=== PATIENT | male | born 1975 | race Caucasian/White ===

== ENCOUNTER → 2021-12-04 16:29 | Outpatient (BNVA) | payer OTHER, SELFPAY | PROVIDERS: Family Provider Family Medicine; PCP Family Medicine; Visit Provider Family Medicine | DX: J06.9 Acute upper respiratory infection, unspecified (principal) | CPT/HCPCS: 87635 ==

== ENCOUNTER 2022-04-30 09:55 | Outpatient (CLI) | payer OTHER, SELFPAY | END 2022-04-30 09:56 | disposition home or self-care (01) | PROVIDERS: Family Provider Family Medicine; PCP Family Medicine; Visit Provider Family Medicine | DX: R06.09 Other forms of dyspnea (principal); R07.9 Chest pain, unspecified | CPT/HCPCS: 71046; 80053; 80061; 85025 ==

== ENCOUNTER 2022-07-31 14:49 | Emergency (ER) | payer OTHER, SELFPAY ==
[2022-07-31] VITALS (7 sets, daily range): BP systolic 134–183; BP diastolic 74–95; PULSE 70–81; RESP 16–22; TEMP 36.6; O2SAT 96–100; BMI 51.7
--- NOTE | 2022-07-31 14:54 | XR_ITS ---
WS: [id number] Exam: XR chest 1V portable [id number] Date/Time of Exam: 07/31/2022 2:54 PM Reason For Exam: chest pain Comparison 04/30/2022. Findings: The lungs are clear and fully expanded. Costophrenic angles are sharp. No infiltrates. Bronchovascula r relief appears normal. Cardiac silhouette is unremarkable. Bony elements are intact. XR/XR chest 1V portable [id number] IMPRESSION: Unremarkable chest radiograph.
--- NOTE | 2022-07-31 15:04 | ECG_ITS ---
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 Measurements Intervals [place] Rate: 78 P: 151 AK: 188 QRS: 139 QRSD: 94 T: 147 QT: 367 QTc: 419 Interpretive Statements SINUS RHYTHM ARM LEADS REVERSED [INVERTED P AND QRS IN I] No previous ECG available for comparison Electronically Signed On 07-31-2022 16:38:45 CDT by Renee James M.D. [id number]
[2022-07-31 15:07] LABS: Basophils # 0.1 10^3/uL (0.0-0.1); Basophils % 0.7 %; Eosinophils # 0.1 10^3/uL (0.0-0.8); Eosinophils % 1.6 %; Hematocrit 45.8 % (42.0-52.0); Hemoglobin 14.7 g/dL (11.7-16.6); Lymphocytes # 1.5 10^3/uL (0.8-4.8); Lymphocytes % 18.1 %; Mean Corpuscular HGB Conc 32.1 g/dL (30.0-36.0); Mean Corpuscular Hemoglobin 29.9 pg (28.0-34.0); Mean Corpuscular Volume 93.1 fl (80-94); Mean Platelet Volume 10.8 fL (7.4-10.4); Monocytes # 0.5 10^3/uL (0.2-0.9); Monocytes % 6.4 %; Neutrophils # 6.19 10^3/uL (1.8-7.7); Nucleated Red Blood Cells % 0 %; Platelet Count 243 10^3/cmm (130-400); Red Blood Count 4.92 10^6/uL (4.1-5.3); Red Cell Distribution Width 12.4 % (12.1-15.1); White Blood Count 8.5 10^3/uL (4.0-10.0)
--- NOTE | 2022-07-31 15:07 | W.ED.GENADLT ---
HPI - General Adult General: Chief complaint: Chest Pain Stated complaint: Chest pains, hbp Time Seen by Provider: 07/31/22 14:55 History of Present Illness: Patient is a 46-year-old male with history of hypertension on losartan 100 mg presenting to the emergency room for evaluation of uncontrolled blood pressure and chest pressure. Patient tells me that for the last year he has been had on and off chest pressure. He currently has chest pressure has been going on for last 3 weeks. Patient says that each episode of chest pressure lasted for 2 to 3 hours at a time. 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 Patient says that chest pressure is not worse with exertion. Since COVID last year, patient has had cough and shortness of breath. Patient was told to come to the emergency room because he had elevated blood pressure despite taking his losartan. No other focal complaints at this time. Patient denies any history of smoking. Patient reports that his father had a heart attack in his late 50s. Onset: 1 day ago of uncontrolled blood pressure, 1 year of chest pressure Duration:ongoing Location:home Severity:mild/moderate Associated symptoms: Reports chest pain (+chest pressure); Deny dyspnea, nausea, rash, palpitations or vomiting Review of Systems Const: Denies: fever(s) or chills Eyes: Denies: change in vision ENMT: Denies: mouth pain Card: Reports: chest pain (+chest pressure); Denies: palpitations Resp: Denies: dyspnea or non-productive cough GI: Denies: abdominal pain, nausea, vomiting or diarrhea : Denies: dysuria Musc: Denies: extremity pain Skin/Breast: Denies: rash or new lesions Neuro: Denies: weakness in extremities Psych: Reports: other (Normal mood) [place]/Lymph: Denies: easy bruising PFSH ED PFSH: Medical History Anxiety about health History of hypothyroidism Hypertension Morbid obesity with BMI of 45.0-49.9, adult Social History Smoking and tobacco status: never smoked Alcohol intake: never Physical Exam Const: COMMON NORMALS: alert HENMT: COMMON NORMALS: atraumatic HEAD & SCALP: atraumatic MOUTH: moist mucous membranes not abnormal Eye: COMMON NORMALS: EOMs intact bilaterally and conjunctivae normal CONJUNCTIVA: Yes conjunctivae normal Neck/C-Spine: COMMON NORMALS: full ROM and supple Resp: COMMON NORMALS: normal respiratory effort and clear to auscultation bilaterally AUSCULTATION: clear to auscultation bilaterally Cardio: COMMON NORMALS: regular rate RATE: regular rate OTHER: 2+ radial pulses b/l GI: COMMON NORMALS: Soft to palpation and non-tender PALPATION: Yes Soft to palpation OTHER: No focal TTP. NO guarding rebound, guarding, rigidity. No CVA tenderness to percussion. Neg Bryson/Neg McBurney's point tenderness, no suprabupic tenderness to palpation. Extremity: COMMON NORMALS: full ROM Neuro: SENSORIUM/ORIENTATION: Yes alert MOTOR EXAM: No Abnormal motor strength present and Other motor observations present (no focal motor deficits) Psych: COMMON NORMALS: speech normal SPEECH: Yes normal speech MOOD & AFFECT: Yes euthymic mood Course Vital Signs: Vital signs: Vital Signs Temperature 97.9 F 07/31/22 14:52 Pulse Rate 74 07/31/22 18:00 Respiratory Rate 18 07/31/22 18:00 Blood Pressure 135/81 07/31/22 18:00 Pulse Oximetry 99 07/31/22 18:00 Oxygen Delivery Me thod 07/31/22 14:52 MDM - General Adult Medical Decision Making 46-year-old male with a history of hypertension presenting to the emergency room for evaluation of uncontrolled blood pressure in the setting of ongoing chest pressure for the last year. On arrival, patient is hemodynamically stable with blood pressure of 183/95. Patient is currently chest pain-free. EKG did not show any signs of ST elevations, ST depression or T wave inversion. Troponin x2 within normal limit. Patient has no complaints of chest pain in the ER. Patient received amlodipine with improvement in blood pressure. Her chest appears to be within normal limit. Patient has a heart score less than 3 today. At the present time, I have given patient close follow-up with outpatient cardiology should patient needed further evaluation for chest pain I have given patient follow up with our lining caser to be seen by our outpatient Cardiology for chest pain. Patient aware of a call from our lining caser to schedule for appointment(s) and verbalizes understanding of the importance of following up. Rx amlodipine for elevated BP Disposition: Discharge. Patient counseled regarding diagnostic impression, treatment plan. Patient given ED strict return precautions to return for continuation, worsening, or development of new symptoms. Instructed to f/u w/ PCP and Cardiology regarding symptoms today. Patient verbalized understanding. Lab Data : 07/31/22 14:54 07/31/22 15:02 Radiology Impressions Chest X-Ray 07/31/22 14:54 IMPRESSION: Unremarkable chest radiograph. Laboratory Results WBC 8.5 10^3/uL (4.0-10.0) 07/31/22 14:54 RBC 4.92 10^6/uL (4.1-5.3) 07/31/22 14:54 Hgb 14.7 g/dL (11.7-16.6) 07/31/22 14:54 Hct 45.8 % (42.0-52.0) 07/31/22 14:54 MCV 93.1 fl (80-94) 07/31/22 14:54 MCH 29.9 pg (28.0-34.0) 07/31/22 14:54 MCHC 32.1 g/dL (30.0-36.0) 07/31/22 14:54 RDW 12.4 % (12.1-15.1) 07/31/22 14:54 Plt Count 243 10^3/cmm (130-400) 07/31/22 14:54 MPV 10.8 fL (7.4-10.4) H 07/31/22 14:54 Neut % (Auto) 73.0 % 07/31/22 14:54 Lymph % (Auto) 18.1 % 07/31/22 14:54 [place] % (Auto) 6.4 % 07/31/22 14:54 Eos % (Auto) 1.6 % 07/31/22 14:54 Baso % (Auto) 0.7 % 07/31/22 14:54 Neut # (Auto) 6.19 10^3/uL (1.8-7.7) 07/31/22 14:54 Lymph # (Auto) 1.5 10^3/uL (0.8-4.8) 07/31/22 14:54 [place] # (Auto) 0.5 10^3/uL (0.2-0.9) 07/31/22 14:54 Eos # (Auto) 0.1 10^3/uL (0.0-0.8) 07/31/22 14:54 Baso # (Auto) 0.1 10^3/uL (0.0-0.1) 07/31/22 14:54 Nucleated RBC % (auto) 0 % 07/31/22 14:54 Nucleated RBCs # 0.0 /100WBC 07/31/22 14:54 Sodium 137 mmol/L (136-145) 07/31/22 15:02 Potassium 3.9 mmol/L (3.5-5.1) 07/31/22 15:02 Chloride 102 mmol/L (98-107) 07/31/22 15:02 Carbon Dioxide 25 mmol/L (22-29) 07/31/22 15:02 Anion Gap 13.9 (5-19) 07/31/22 15:02 BUN 9 mg/dL (6-20) 07/31/22 15:02 Creatinine 0.7 mg/dL (0.7-1.2) 07/31/22 15:02 GFR Calculation 122.0 mL/min (90-130) 07/31/22 15:02 Glucose 96 mg/dL (65-115) 07/31/22 15:02 Calculated Osmolality 283 mOsm/kg (285-295) L 07/31/22 15:02 Calcium 9.2 mg/dL (8.5-10.5) 07/31/22 15:02 Troponin T Baseline 6 ng/L (0-15) 07/31/22 15:02 Troponin T 120 Minute 6.00 ng/L (0-15) 07/31/22 17:52 Imaging Data Other Imaging: Radiologist's impression: [address] [address] XRay Report Signed Patient: Mejia Ulloa Unit #: [id number] : 1975 Age/Sex: 46 / M ADM Date: 07/31/22 Loc: ER Room/Bed: Attending Dr: Ordering Provider/Ordering MD: Lara Montes De Oca MD Date of Service: 07/31/22 Procedure(s): XR chest 1V portable [id number] Accession Number(s): [id number] Report Number: [id number] WS: [id number] Exam: XR chest 1V portable [id number] Date/Time of Exam: 07/31/2022 2:54 PM Reason For Exam: chest pain Comparison 04/30/2022. Findings: The lungs are clear and fully expanded. Costophrenic angles are sharp. No infiltrates. Bronchovascular relief appears normal. Cardiac silhouette is unremarkable. Bony elements are intact. ? XR/XR chest 1V portable [id number] IMPRESSION: Unremarkable chest radiograph. ? ? Dictated By: Kelvin Haynes DO Signed By: Kelvin Haynes DO Signed Date/Time: 07/31/22 1509 DD/ 1508 Discharge Plan Discharge Patient Disposition: Home Clinical Impression: Hypertension Condition: Stable Prescriptions: New amlodipine 5 mg tablet 5 mg PO DAILY 20 Days Qty: 20 0RF No Action trazodone 100 mg tablet 100 mg PO BEDTIME PRN (Reason: sleep) losartan 100 mg tablet 100 mg PO DAILY Qty: 90 1RF sildenafil 25 mg tablet 25 mg PO DAILY PRN (Reason: sexual activity) Qty: 30 3RF Rx Instructions: administer 30 minutes to 4 hours before activity Discharge Orders: Discharge ED (Routine); Ordered 07/31/22 Ordered By: Lara Montes De Oca Referrals: Ever Levi DO [Primary Care Provider] - Discharge Diet: Advance as tolerated Discharge Activity: Increase activity as tolerated Activity Restrictions/Additional Instructions: Come back to the emergency room if your chest pain worsens, have any fever or chills, worsening shortness of breath, worsening exertional lightheadedness, or any new or concerning complaints. You need to follow-up with your primary care provider for further adjustment of your blood pressure. Your blood pressure puts you at risk for developing strokes and heart attack. Therefore it is very important for you to follow-up with this number to see if the numbers improve gradually. Because blood pressure adjustment is a gradual process, were not able to change it in 1 visit. Therefore please log your blood pressure and follow-up with your primary care provider in the next 72 hours for further adjustment of your blood pressures. Our lining caser will have you follow-up with a Aircraft Electronics Technical Officer in the next few days for your chest pain. You would be expected to have a phone call with our lining caser who will put you on the schedule. You can expect a call from us in the next 2-3 days. If you don't hear from us, call us back in the emergency room at [phone]. Coding Level of Care Code ED Service Line Layer for Shea Mayne Exam Comprehensive
--- NOTE | 2022-07-31 15:16 | PC.NURSE ---
pt reports chest pain last night described as a pressure. pt does not remember if he was driving or walking when pain started. reports dyspnea, nausea, dizziness, and lightheadedness. denies vomiting, diarrhea, fevers, diaphoresis. lungs sounds clear bilat, speech clear, speaking in complete sentences without difficulty, bowel sounds present. skin pink/warm/dry. reports cardiac hx of htn. family hx of open heart surgery, cardiac stents, and htn.
[2022-07-31 15:48] LABS: Anion Gap 13.9 (5-19); Blood Urea Nitrogen 9 mg/dL (6-20); Calcium 9.2 mg/dL (8.5-10.5); Carbon Dioxide 25 mmol/L (22-29); Chloride 102 mmol/L (98-107); Glucose 96 mg/dL (65-115); Osmolality Calculated 283 mOsm/kg (285-295); Potassium 3.9 mmol/L (3.5-5.1); Sodium 137 mmol/L (136-145)
[2022-07-31] MEDS: amlodipine 10 mg Tablet PO (16:02)
[2022-07-31 16:24] LABS: Troponin(5th) Baseline 6 ng/L (0-15)
--- NOTE | 2022-07-31 16:52 | ECG_ITS ---
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 Measurements Intervals [place] Rate: 72 P: 61 GA: 185 QRS: 37 QRSD: 89 T: 31 QT: 375 QTc: 412 Interpretive Statements SINUS RHYTHM Compared to ECG 07/31/2022 15:04:49 No significant changes Electronically Signed On 08-01-2022 6:10:21 CDT by Renee James M.D. [id number]
[2022-07-31 18:28] LABS: Troponin 5 2HR Delta 0 ABS# (0-10)
== END 2022-07-31 18:55 | disposition home or self-care (01) ==
PROVIDERS: Emergency Provider Emergency Medicine; PCP Family Medicine
DX: I10 Essential (primary) hypertension (principal)
CPT/HCPCS: 36415; 71045; 80048; 84484; 85025; 93005; 99285

== ENCOUNTER 2022-08-19 07:50 | Outpatient (CLI) | payer OTHER, SELFPAY ==
--- NOTE | 2022-08-19 | ECG_ITS ---
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 Interpretive Statements NAME OF STUDY: LEXISCAN SESTAMIBI STRESS TEST INDICATION: Chest Pain; Dyspnea on Exertion PROCEDURE: At the baseline, the blood pressure was 134/84 mmHg with a heart rate of 68 bpm. The electrocardiogram showed sinus rhythm, normal axis with nonspecific T wave inversion in lead III, aVF and V3. The Lexiscan was infused over a period of 20 seconds. A total of 0.4 milligrams of Lexiscan was infused. The stress phase was continued for a total of 5 minutes. Heart rate at the end of the stress phase was 97 bpm with a blood pressure of 134/81 mmHg. The EKG at the peak infusion revealed sinus rhythm at 97 bpm with no significant ST-T wave changes. The study was terminated to protocol completion. Sestamibi was injected 20 seconds after the Lexiscan infusion. Blood pressure at the end of the recovery phase was 140/82 mmHg with a heart rate of 90 beats per minute. CONCLUSION: 1. No significant EKG changes with the LexiScan infusion 2. No LexiScan induced chest pain or cardiac arrhythmia. 3. Normal blood pressure and heart rate response. 4. Sestamibi/sestamibi perfusion scan pending; see separate report. Electronically Signed On 08-20-2022 12:49:09 CDT by Renee James M.D. [id number]
--- NOTE | 2022-08-19 08:19 | NMCV_ITS ---
NM олег perf SPECT r/s* [id number] Mejia Ulloa Age: 46 Gender: M : 1975 Exam Date: 08/19/2022 09:39 Ordering Phys: Ever Levi DO Technologist: JOLENE Desouza Exam Location: [facility] Indications: CHEST PAIN STRESS TEST Please see separate stress test report in [facility] for full findings IMAGE PROTOCOL Rest/Stress 1 Lexiscan Day Radiopharmaceutical Dose (mCi) Administration Site Administered by Rest: Tc-99m 11.0 IV JOLENE Lubin Sestamibi Stress:Tc-99m 32.3 IV JOLENE Lubin Sestamibi Rest: 19-Aug-2022 60 Discovery 630 Stress: 19-Aug-2022 30 Discovery 630 0.4mg Lexiscan. Images obtained in supine and prone position. SPECT RESULTS Technical Quality: Excellent Raw Data Analysis: Normal Image Corrections: No attenuation or motion correction applied Summed Stress Score: 1 Summed Rest Score: 1 Summed Difference Score: 1 PERFUSION FINDINGS Small sized perfusion abnormality of mild severity of mid inferior wall on rest and supine stress images with improved tracer uptake on prone stress images. This is likely suggestive of attenuation artifact. FUNCTIONAL RESULTS (calculated via Gated SPECT) Stress Image LV EF (%): 62 Stress EDV (mL):129 TID: 1.01 Stress ESV (mL):49 FUNCTIONAL FINDINGS: The left ventricle is normal in size. Transient Ischemia Dilatation of 1. There is normal left ventricular systolic function. The left ventricular ejection fraction is normal with a value of 62%. There is normal left ventricular wall thickening. IMPRESSIONS 1. Myocardial perfusion imaging is normal. 2. Overall left ventricular systolic function is normal without regional wall motion abnormalities, LVEF=62%. 3. No EKG changes with Lexiscan infusion. Refer to separate report for details. Renee James MD (Electronically Signed) Final Date: 20 August 2022 12:46 S
[2022-08-19 08:29] VITALS: BMI 50.9
[2022-08-19] MEDS: regadenoson 0.4 Mg/5 ml Syringe IVP (10:12)
[2022-08-19 11:08] VITALS: BP 137/78; PULSE 80
== END 2022-08-19 07:51 | disposition home or self-care (01) ==
PROVIDERS: PCP Family Medicine; Visit Provider Family Medicine
DX: R07.9 Chest pain, unspecified (principal); R06.00 Dyspnea, unspecified
CPT/HCPCS: 78452; 93017; A9500; J2785

== ENCOUNTER 2022-10-10 20:00 | Outpatient (CLI) | payer OTHER, SELFPAY | END 2022-10-10 20:01 | disposition home or self-care (01) | LOC: SLEEP 10-11 07:11 | PROVIDERS: PCP Family Medicine; Visit Provider Family Medicine | DX: G47.33 Obstructive sleep apnea (adult) (pediatric) (principal); I10 Essential (primary) hypertension | CPT/HCPCS: 95810 ==

== ENCOUNTER 2022-12-19 20:00 | Outpatient (CLI) | payer OTHER, SELFPAY | END 2022-12-19 20:01 | disposition home or self-care (01) | LOC: SLEEP 12-20 06:26 | PROVIDERS: PCP Family Medicine; Visit Provider Family Medicine | DX: G47.33 Obstructive sleep apnea (adult) (pediatric) (principal) | CPT/HCPCS: 95811 ==

== ENCOUNTER → 2024-06-23 09:09 | Outpatient (BNVA) | payer OTHER, SELFPAY | PROVIDERS: PCP Family Medicine; Visit Provider Family Medicine | DX: I10 Essential (primary) hypertension (principal); Z11.4 Encounter for screening for human immunodeficiency virus [HIV]; Z20.2 Contact with and (suspected) exposure to infections with a predominantly sexual mode of transmission; Z11.59 Encounter for screening for other viral diseases; Z79.899 Other long term (current) drug therapy | CPT/HCPCS: 80053; 86592; 86803; 87491; 87591; 87806 ==

== ENCOUNTER → 2024-09-02 07:45 | Outpatient (BNVA) | payer OTHER, SELFPAY | PROVIDERS: PCP Family Medicine; Visit Provider Family Medicine | DX: R74.8 Abnormal levels of other serum enzymes (principal) | CPT/HCPCS: 80053 ==